=== PATIENT | female | born 1955 | race Asian ===

== ENCOUNTER 2017-03-28 11:54 | Inpatient (IN) | payer OTHER ==
[~2017-03-28 11:54] MED LIST: ESMOLOL 100 MG INJ; SUCCINYLCHOLINE CHLORIDE 100 MG/5 ML SYG IV
[2017-03-28] MEDS ORDERED: PROPOFOL 100 ML (12:54)
[2017-03-28] MEDS ORDERED: ROCURONIUM 50 MG INJ (12:54)
[2017-03-28] MEDS ORDERED: CEFAZOLIN 1 GM INJ (12:54)
[2017-03-28] MEDS ORDERED: FENTAnyl 50 MCG/ML VIAL ×2 (12:55)
[2017-03-28] MEDS ORDERED: MIDAZOLAM 1 MG/ML 2 ML INJ (12:55)
[2017-03-28] MEDS ORDERED: MEPERIDINE 25 MG INJ IV (13:00)
[2017-03-28] MEDS ORDERED: ONDANSETRON 4 MG INJ IV (13:00)
[2017-03-28] MEDS ORDERED: hydrALAzine 20 MG INJ IV (13:00)
[2017-03-28] MEDS ORDERED: FENTAnyl 50 MCG/ML VIAL IV ×3 (13:00)
[2017-03-28] MEDS ORDERED: EPHEDrine SULFATE 50 MG/5 ML SYG IV (13:00)
[2017-03-28] MEDS ORDERED: ALBUMIN HUMAN 5% 250 ML IV (13:00)
[2017-03-28] MEDS ORDERED: HYDROmorphONE (0.2 MG/ML) 10ML SYG IV ×3 (13:00)
[2017-03-28] MEDS ORDERED: METOCLOPRAMIDE 10 MG INJ IV (13:00)
[2017-03-28] MEDS ORDERED: DIPHENHYDRAMINE 50 MG INJ IV ×2 (13:00→15:30)
[2017-03-28] MEDS ORDERED: HYDROmorphONE 0.5 MG/0.5 ML SYG IV (15:30)
[2017-03-28] MEDS: CEFAZOLIN 1 GM/50 ML (PMX) 50 ML IVPB ×2 (15:30→23:21)
[2017-03-28] MEDS ORDERED: AL HYDROX/MG HYDROX/SIMETH 30 ML CUP PO (15:30)
[2017-03-28] MEDS ORDERED: CEPASTAT LOZENGE MT (15:30)
[2017-03-28] MEDS ORDERED: NALOXONE (0.4 MG/ML) INJ IV (15:30)
[2017-03-28] MEDS ORDERED: THROMBIN 5000 UNIT VIAL (15:39)
[2017-03-28] MEDS ORDERED: POLYMYXIN/BACITRACIN 1L IRRIG (15:39)
[2017-03-28] MEDS ORDERED: LIDOCAINE 1%/EPI 30 ML INJ (15:39)
[2017-03-28] MEDS ORDERED: SURGIFOAM POWDER 1 GM KIT (15:39)
[2017-03-28] MEDS ORDERED: CA CHLORIDE 10% 10 ML SYRINGE (15:39)
[2017-03-28] MEDS ORDERED: HEPARIN 1000 UNITS/ML 10 ML INJ (16:03)
[2017-03-28] MEDS ORDERED: ONDANSETRON 4 MG INJ (16:38)
[2017-03-28] MEDS ORDERED: SUGAMMADEX SODIUM 200 MG/2 ML VIAL IV (16:38)
[2017-03-28] MEDS ORDERED: EPHEDrine SULFATE 50 MG/5 ML SYG (16:38)
[2017-03-28] MEDS ORDERED: METOCLOPRAMIDE 10 MG INJ (16:38)
[2017-03-28] MEDS ORDERED: DEXAMETHASONE 4 MG/ML 1 ML INJ (16:38)
[2017-03-28] MEDS: CA CHLORIDE 10% 10 ML SYRINGE (16:47)
[2017-03-28] MEDS: POLYMYXIN/BACITRACIN 1L IRRIG (16:48)
[2017-03-28] MEDS: LIDOCAINE 1%/EPI 30 ML INJ (16:48)
[2017-03-28] MEDS: HEPARIN 1000 UNITS/ML 10 ML INJ (16:48)
[2017-03-28] MEDS: SURGIFOAM POWDER 1 GM KIT (16:48)
[2017-03-28] MEDS: THROMBIN 5000 UNIT VIAL (16:49)
[2017-03-28] MEDS ORDERED: ACETAMINOPHEN 1000MG/100ML IV 100 ML (17:11)
[2017-03-28] MEDS: FENTAnyl 50 MCG/ML VIAL (17:31)
[2017-03-28] MEDS: HYDROmorphONE 0.2 MG/ML PCA IV (18:08)
[2017-03-28] MEDS: D5W-0.45 NACL + KCL 20 MEQ 1,000 ML IV (19:51)
[2017-03-28] MEDS: DOCUSATE SODIUM 100 MG CAP PO (20:45)
[2017-03-29] MEDS: D5W-0.45 NACL + KCL 20 MEQ 1,000 ML IV ×2 (00:46→06:27)
[2017-03-29 05:30] LABS: ADD MAN DIFF? NO
[2017-03-29 05:40] LABS: WHITE BLOOD COUNT 10.1 10^3/ul (4.8-10.8)
[2017-03-29 05:40] LABS: HEMATOCRIT 34.5 % (37.0-47.0); HEMOGLOBIN 12.1 g/dl (12.0-16.0); LYMPHOCYTES % 10.2 % (15.0-51.0); MEAN CORPUSCULAR HEMOGLOBIN 32.7 pg (29.0-33.0); MEAN CORPUSCULAR HGB CONC 35.1 g/dl (32.0-37.0); MEAN CORPUSCULAR VOLUME 93.2 fl (82.0-101.0); MEAN PLATELET VOLUME 12.4 fl (7.4-10.4); MONOCYTE # 0.3 10^3/ul (0.3-0.9); MONOCYTES % 2.7 % (0.0-11.0); NEUTROPHIL # 8.7 10^3/ul (1.6-7.5); NEUTROPHILS % 86.8 % (39.0-77.0); PLATELET COUNT 167 10^3/UL (140-415); RED CELL DISTRIBUTION WIDTH 11.9 % (11.5-14.5)
[2017-03-29 06:06] LABS: ANION GAP 16 (8-16); BLOOD UREA NITROGEN 13 mg/dl (7-20); CALCIUM 8.9 mg/dl (8.4-10.2); CARBON DIOXIDE 23 mmol/L (21-31); CHLORIDE 108 mmol/L (97-110); CREATININE 0.59 mg/dl (0.44-1.00); GLUCOSE 186 mg/dl (70-220); POTASSIUM 4.1 mmol/L (3.5-5.1); SODIUM 143 mmol/L (135-144)
[2017-03-29] MEDS: CEFAZOLIN 1 GM/50 ML (PMX) 50 ML IVPB (06:33)
[2017-03-29] MEDS: ONDANSETRON 4 MG INJ IV (09:29)
[2017-03-29] MEDS: DOCUSATE SODIUM 100 MG CAP PO ×2 (10:01→20:54)
[2017-03-29] MEDS: VALSARTAN 160 MG TAB PO (10:01)
[2017-03-29] MEDS: LORATADINE 10 MG TAB PO (10:02)
[2017-03-29] MEDS: AMLODIPINE 5 MG TAB PO (10:02)
[2017-03-29] MEDS: traMADol 50 MG TAB PO ×2 (14:07→22:18)
[2017-03-29] MEDS: ATORVASTATIN 20 MG TAB PO (20:54)
[2017-03-30] MEDS: traMADol 50 MG TAB PO ×2 (04:30→22:00)
[2017-03-30] MEDS: LORATADINE 10 MG TAB PO (08:43)
[2017-03-30] MEDS: VALSARTAN 160 MG TAB PO (08:43)
[2017-03-30] MEDS: AMLODIPINE 5 MG TAB PO (08:43)
[2017-03-30] MEDS: CARISOPRODOL 350 MG TAB PO (08:43)
[2017-03-30] MEDS: DOCUSATE SODIUM 100 MG CAP PO ×2 (08:43→20:19)
[2017-03-30 15:07] LABS: ADD UMIC YES; UR ASCORBIC ACID NEGATIVE (NEGATIVE); UR BILIRUBIN (Dip) NEGATIVE (NEGATIVE); UR BLOOD (Dip) 1+ mg/dL (NEGATIVE); UR CLARITY SLIGHTLY CLOUDY (CLEAR); UR COLOR YELLOW (YELLOW); UR GLUCOSE (Dip) NEGATIVE (NEGATIVE); UR KETONES (Dip) NEGATIVE (NEGATIVE); UR LEUKOCYTE ESTERASE (Dip) 3+ Leu/ul (NEGATIVE); UR NITRITE (Dip) NEGATIVE (NEGATIVE); UR RBC 1 /HPF (0-5); UR SQUAMOUS EPITHELIAL CELL FEW /HPF (FEW); UR TOTAL PROTEIN (Dip) NEGATIVE (NEGATIVE); UR UROBILINOGEN (Dip) NEGATIVE (NEGATIVE); UR WBC 117 /HPF (0-5)
[2017-03-30] MEDS: CIPROFLOXACIN 500 MG TAB PO (18:00)
[2017-03-30] MEDS: ATORVASTATIN 20 MG TAB PO (20:19)
[2017-03-30] MEDS: ACETAMINOPHEN 325 MG TAB PO (20:19)
[2017-03-30] MEDS: TRIMETHOPRIM/SULFAMETHOX (DS) TAB PO (20:19)
[2017-03-31 04:50] LABS: ADD MAN DIFF? NO
[2017-03-31 04:54] LABS: BASOPHIL # 0.1 10^3/ul (0.0-0.1); BASOPHILS % 0.5 % (0.0-2.0); EOSINOPHILS # 0.1 10^3/ul (0.0-0.5); EOSINOPHILS % 0.7 % (0.0-7.0); HEMOGLOBIN 11.3 g/dl (12.0-16.0); LYMPHOCYTES # 2.8 10^3/ul (0.8-2.9); LYMPHOCYTES % 27.8 % (15.0-51.0); MEAN CORPUSCULAR HEMOGLOBIN 32.5 pg (29.0-33.0); MEAN CORPUSCULAR HGB CONC 34.2 g/dl (32.0-37.0); MEAN CORPUSCULAR VOLUME 94.8 fl (82.0-101.0); MEAN PLATELET VOLUME 11.6 fl (7.4-10.4); MONOCYTE # 0.9 10^3/ul (0.3-0.9); MONOCYTES % 9.1 % (0.0-11.0); NEUTROPHIL # 6.2 10^3/ul (1.6-7.5); NEUTROPHILS % 61.4 % (39.0-77.0); PLATELET COUNT 163 10^3/UL (140-415); RED BLOOD COUNT 3.48 10^6/ul (4.20-5.40); RED CELL DISTRIBUTION WIDTH 12.5 % (11.5-14.5)
[2017-03-31 04:54] LABS: WHITE BLOOD COUNT 10.1 10^3/ul (4.8-10.8)
[2017-03-31] MEDS: DOCUSATE SODIUM 100 MG CAP PO (09:09)
[2017-03-31] MEDS: TRIMETHOPRIM/SULFAMETHOX (DS) TAB PO ×2 (09:09→18:38)
[2017-03-31] MEDS: LORATADINE 10 MG TAB PO (09:10)
[2017-03-31] MEDS: traMADol 50 MG TAB PO ×2 (09:10→14:36)
[2017-03-31] MEDS: AMLODIPINE 5 MG TAB PO (09:11)
[2017-03-31] MEDS: VALSARTAN 160 MG TAB PO (09:12)
[2017-03-31] MEDS: BISACODYL 10 MG SUPP PR (18:05)
== END 2017-03-31 18:58 | disposition home or self-care (01) | DRG 520 ==
LOC: REC 11:54 → MS1 19:25
PROC: 01NB0ZZ Release Lumbar Nerve, Open Approach (ICD-10-PCS; principal; 2017-03-28 14:30)
PROC: 0SB20ZZ Excision of Lumbar Vertebral Disc, Open Approach (ICD-10-PCS; 2017-03-28 14:30)
DX: M51.16 Intervertebral disc disorders with radiculopathy, lumbar region (principal); I10 Essential (primary) hypertension; M48.061 Spinal stenosis, lumbar region without neurogenic claudication; E78.5 Hyperlipidemia, unspecified; L29.9 Pruritus, unspecified; R50.82 Postprocedural fever
CPT/HCPCS: 71045; 72020; 80048; 81001; 83735; 85025; 86999; 87040; 87086; 97116